=== PATIENT | female | born 1985 | race African-American/Black ===

== ENCOUNTER 2023-10-11 13:49 | Outpatient (AMB) | payer OTHER, SELFPAY ==
--- NOTE | 2023-10-11 14:01 | MHC.OFFVIS ---
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 The condition started after she had her in 2021. She started having significant pains in her shoulders knees, hands. She was evaluated by her PCP, her ESR was elevated, she was prescribed a prednisone taper with improvement. Since then she would have intermittent flare-ups of joint pain and swelling. She gets swelling of her fingers and her rings are tight. She has morning stiffness lasting at least 3 hours. She gets bilateral hand pain, wrist pain, hip pain, knee pain, ankle pain. Recently evaluated by PCP and prescribed prednisone taper with at least 70% improvement, however the higher doses were associated with stomach upset and diarrhea. She states that she gets intermittent rashes on the back of her scalp, those are usually worse in the sun and are associated with hair loss. She has been getting intermittent rashes the mouth. Uncomfortable but not painful. Patient had 11 pregnancies, 9 live births and 2 abortions. She is unaware of any family history of an autoimmune rheumatic disease. 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 Female Reproductive History Menstrual Total pregnancies: 11 Full term: 9 Ab induced: 2 Review of Systems Const Reports fatigue, Reports headache(s) and Reports weakness Eyes Reports blurry vision and Reports eye pain ENT Reports headache(s), Reports neck pain and Reports tinnitus GI Reports nausea Musc Reports back pain, Reports arthralgias, Reports joint swelling, Reports neck pain, Reports numbness, Reports radiating pain into limb, Reports stiffness and Reports tingling Skin/Breast Reports pruritus, Reports erythema and Reports rash Neuro Reports headache(s), Reports numbness, Reports tingling and Reports weakness Psych Reports abnormal sleep pattern, Reports anxiety and Reports depression Endo Reports fatigue Physical Exam Vital Signs: Last Vital Signs Temp 97.8 F 10/11/23 14:02 Pulse 68 10/11/23 14:02 Resp 17 10/11/23 14:02 BP 126/78 10/11/23 14:02 Pulse Ox 99 10/11/23 14:02 Oxygen Delivery Method Room Air 10/11/23 14:02 BMI result Body Mass Index 46.8 Const General: cooperative, healthy appearing and comfortable Nutritional Appearance: obese morbidly obese Orientation/consciousness: patient oriented x3 Limitations: no limitations HEENT Head: Yes normocephalic and Yes atraumatic Mouth: moist mucous membranes Resp Effort & Inspection: normal respiratory effort and able to speak in complete sentences Auscultation: clear to auscultation bilaterally Cardio Rate: regular rate Rhythm: regular rhythm Skin Other: Neuro General: patient oriented x3 Extrem Other: Bilateral wrist tenderness and pain with flexion and extension Bilateral diffuse MCP tenderness No PIP or DIP tenderness Bilateral elbow pain with flexion and extension Few fibromyalgia tender points Knee pain with flexion and extension bilaterally as well as trochanteric bursa area tenderness Bilateral ankle pain to palpation No MTP tenderness bilaterally Negative MTP squeeze test bilaterally Results Reviewed Results Reviewed: X-RAY KNEE 4+ VIEW Exam Date: 07/05/2023 1:41 PM Ordering Diagnosis: Right knee pain, unspecified chronicity ? HISTORY: Knee Pain ? TECHNIQUE: 4 views of the right knee ? COMPARISON: Right knee radiograph from 07/17/2022 ? FINDINGS: No acute fracture or dislocation is seen. There is no joint effusion present. The medial and lateral joint spaces appear normal. Soft tissues are unremarkable. ? IMPRESSION IMPRESSION: No acute fracture or dislocation of the right knee. Labs from [facility] 09/2023 ESR 83 DELICIA/RF negative Assessment & Plan Assessment & Plan (1) Polyarthralgia: Code(s): M25.50 - Pain in unspecified joint Plan: This is a 38-year-old female who presents for evaluation of recurrent episodes of diffuse joint pain and swelling, high inflammatory markers, symptoms responsive to prednisone. Clinical picture consistent with new onset inflammatory arthritis. Will order comprehensive serology to screen for underlying autoimmune rheumatic disease. Check x-rays of involved joints. Start prednisone taper for relief Follow-up in about 4 weeks Plan I spent 47 minutes reviewing patient's chart, evaluating patient, ordering diagnostic workup, counseling patient and documenting in the chart Orders: Orders DELICIA Reflex Titer and Pattern Today M32.9 - Systemic lupus erythematosus, unspecified Anti Extractable Nuclear Ag Today M32.9 - Systemic lupus erythematosus, unspecified C Reactive Protein Today M32.9 - Systemic lupus erythematosus, unspecified DNA Double Stranded-Crithidia Today M32.9 - Systemic lupus erythematosus, unspecified Erythrocyte Sedimentation Rate Today M32.9 - Systemic lupus erythematosus, unspecified Protein Creatinine Ratio, Ur Today M32.9 - Systemic lupus erythematosus, unspecified UA w Microscopic Today M32.9 - Systemic lupus erythematosus, unspecified Comprehensive Met. Panel Today M32.9 - Systemic lupus erythematosus, unspecified T Spot TB Today Z11.7 - Encounter for testing for latent tuberculosis infection Protein Electrophoresis, Serum Today M32.9 - Systemic lupus erythematosus, unspecified XR hand wrist LT Today M25.50 - Pain in unspecified joint XR hip RT min 2V Today M25.50 - Pain in unspecified joint Beta-2 Glycoprotein Antibody Today D68.61 - Antiphospholipid syndrome Anti DNA DS Antibody Today M32.9 - Systemic lupus erythematosus, unspecified Complement C3 Today M32.9 - Systemic lupus erythematosus, unspecified Complement C4 Today M32.9 - Systemic lupus erythematosus, unspecified Sjogren's Antibodies Today M32.9 - Systemic lupus erythematosus, unspecified Complete Blood Count Auto Diff Today M32.9 - Systemic lupus erythematosus, unspecified Hepatitis A,B,C Profile Today Z11.59 - Encounter for screening for other viral diseases Immunofixation Pnl, Serum Today M32.9 - Systemic lupus erythematosus, unspecified Angiotensin Converting Enzyme Today D86.9 - Sarcoidosis, unspecified Cyclic Citrullinated Peptide Today M25.50 - Pain in unspecified joint XR hand wrist RT Today M25.50 - Pain in unspecified joint XR knee LT 3V Today M25.50 - Pain in unspecified joint XR knee RT 3V Today M25.50 - Pain in unspecified joint XR knee standing BI Today M25.50 - Pain in unspecified joint XR hip LT min 2V Today M25.50 - Pain in unspecified joint Cardiolipin Antibodies Today D68.61 - Antiphospholipid syndrome Lupus Anticoagulant Panel Today D68.61 - Antiphospholipid syndrome Medications: New prednisone Take 4 tabs daily for 1 week, 3 tabs daily for 1 week, 2 tabs daily for 1 week, 1 tab daily for 1 week then stop 70 tabs 0RF Coding Level of Care Code New Pt Level 4 (55226) Diagnoses Polyarthralgia M25.50
[2023-10-11 14:02] VITALS: BP 126/78; PULSE 68; RESP 17; TEMP 36.6; O2SAT 99; BMI 46.8
== END 2023-10-11 14:48 | disposition home or self-care (01) ==
PROVIDERS: PCP Internal Medicine; Referring Provider Internal Medicine; Visit Provider Student in an Organized Health Care Education/Training Program
DX: M25.50 Pain in unspecified joint (principal)
CPT/HCPCS: 99204

== ENCOUNTER 2023-10-11 13:49 | Outpatient (REF) | payer OTHER, SELFPAY ==
--- NOTE | ~2023-10-11 | XR_ITS ---
EXAMINATION: XR HIP, RIGHT CLINICAL INFORMATION: Pain. COMPARISON: None available. TECHNIQUE: AP and frog-leg lateral views of the right hip. FINDINGS: No fracture. Alignment is anatomic. Hip joint space is maintained. Soft tissues are unremarkable. XR/XR hip LT min 2V IMPRESSION: Normal right hip. EXAMINATION: XR HIP, LEFT CLINICAL INFORMATION: Pain. COMPARISON: None available. TECHNIQUE: AP and frog-leg lateral views of the left hip. FINDINGS: No fracture. Alignment is anatomic. Hip joint space is maintained. Soft tissues are unremarkable. IMPRESSION: Normal left hip.
--- NOTE | ~2023-10-11 | XR_ITS ---
EXAMINATION: XR HIP, RIGHT CLINICAL INFORMATION: Pain. COMPARISON: None available. TECHNIQUE: AP and frog-leg lateral views of the right hip. FINDINGS: No fracture. Alignment is anatomic. Hip joint space is maintained. Soft tissues are unremarkable. XR/XR hip RT min 2V IMPRESSION: Normal right hip. EXAMINATION: XR HIP, LEFT CLINICAL INFORMATION: Pain. COMPARISON: None available. TECHNIQUE: AP and frog-leg lateral views of the left hip. FINDINGS: No fracture. Alignment is anatomic. Hip joint space is maintained. Soft tissues are unremarkable. IMPRESSION: Normal left hip.
--- NOTE | ~2023-10-11 | XR_ITS ---
EXAMINATION: XR KNEE, RIGHT CLINICAL INFORMATION: Pain. COMPARISON: None available. TECHNIQUE: Four views of the right knee. FINDINGS: No fracture or joint effusion. Alignment is anatomic. Joint spaces are maintained. No abnormal soft tissue calcification. XR/XR knee RT 4V IMPRESSION: Normal right knee. EXAMINATION: XR KNEE, LEFT CLINICAL INFORMATION: Pain. COMPARISON: None available. TECHNIQUE: Four views of the left knee. FINDINGS: No fracture or joint effusion. Alignment is anatomic. Joint spaces are maintained. No abnormal soft tissue calcification. IMPRESSION: Normal left knee.
--- NOTE | ~2023-10-11 | XR_ITS ---
EXAMINATION: XR HAND/WRIST, RIGHT XR HAND/WRIST, LEFT CLINICAL INFORMATION: Pain. COMPARISON: None TECHNIQUE: PA, lateral, and oblique views of the each hand and wrist, together with dedicated navicular views. FINDINGS: RIGHT HAND/WRIST: The bones and soft tissues are normal. No fracture. Alignment is anatomic. Joint spaces are maintained. No erosions or soft tissue calcifications. LEFT HAND/WRIST: The bones and soft tissues are normal. No fracture. Alignment is anatomic. Joint spaces are maintained. No erosions or soft tissue calcifications. XR/XR hand wrist LT IMPRESSION: Normal radiographs of the hands and wrists.
--- NOTE | ~2023-10-11 | XR_ITS ---
EXAMINATION: XR HAND/WRIST, RIGHT XR HAND/WRIST, LEFT CLINICAL INFORMATION: Pain. COMPARISON: None TECHNIQUE: PA, lateral, and oblique views of the each hand and wrist, together with dedicated navicular views. FINDINGS: RIGHT HAND/WRIST: The bones and soft tissues are normal. No fracture. Alignment is anatomic. Joint spaces are maintained. No erosions or soft tissue calcifications. LEFT HAND/WRIST: The bones and soft tissues are normal. No fracture. Alignment is anatomic. Joint spaces are maintained. No erosions or soft tissue calcifications. XR/XR hand wrist RT IMPRESSION: Normal radiographs of the hands and wrists.
--- NOTE | ~2023-10-11 | XR_ITS ---
EXAMINATION: XR KNEE, RIGHT CLINICAL INFORMATION: Pain. COMPARISON: None available. TECHNIQUE: Four views of the right knee. FINDINGS: No fracture or joint effusion. Alignment is anatomic. Joint spaces are maintained. No abnormal soft tissue calcification. XR/XR knee LT 4V IMPRESSION: Normal right knee. EXAMINATION: XR KNEE, LEFT CLINICAL INFORMATION: Pain. COMPARISON: None available. TECHNIQUE: Four views of the left knee. FINDINGS: No fracture or joint effusion. Alignment is anatomic. Joint spaces are maintained. No abnormal soft tissue calcification. IMPRESSION: Normal left knee.
[2023-10-11 15:19] LABS: MANUAL DIFF FLAG NO
[2023-10-11 15:41] LABS: Basophils Percent Auto 0.4 % (0-2); Eosinophils Absolute Auto 0.2 X10*3/uL (0.0-0.4); Eosinophils Percent Auto 2.4 % (0-4); Hematocrit 40.6 % (37.0-47.0); Hemoglobin 13.2 g/dl (12.0-16.0); Imm Gran Abs Auto 0.02 X10*3/uL (0.00-0.03); Imm Gran Pct Auto 0.2 % (0.0-0.4); Lymphocytes Absolute Auto 2.3 X10*3/uL (1.2-4.9); Lymphocytes Percent Auto 28.4 % (20-40); Mean Corpuscular HGB Conc 32.5 g/dl (31.0-35.0); Mean Corpuscular Hemoglobin 26.1 pg (27.0-33.0); Mean Corpuscular Volume 80.4 fL (80.0-98.0); Mean Platelet Volume 9.7 fL (9.4-12.3); Monocytes Absolute Auto 0.5 X10*3/uL (0.1-1.2); Monocytes Percent Auto 5.8 % (2-11); Neutrophils Absolute Auto 5.1 x10*3/uL (2.0-8.3); Neutrophils Percent Auto 62.8 % (45-73); Platelet Count 344 X10*3/uL (160-400); Red Blood Count 5.05 X10*6/uL (4.20-5.50); Red Cell Distribution Width 15.7 % (11.0-16.0); White Blood Count 8.1 X10*3/uL (4.8-10.8)
[2023-10-11 15:43] LABS: Appearance Urine Clear; Color Urine Yellow; Glucose Urine UA Negative (Negative); Leukocyte Esterase Urine Negative (Negative); Nitrite Urine Negative (Negative); UMIC TRIGGER UA YES; Urine Blood Large (3+) (Negative); Urine Ketones Negative (Negative); Urine Protein Negative (Neg-Trace)
[2023-10-11 15:45] LABS: Bacteria Urine None Seen (None Seen); Hyaline Casts Urine 0-2 /LPF (0-2); Squamous Epithelial Cell Urine 0-2 /HPF (0-2); WBC Urine 0-5 /HPF (0-5)
[2023-10-11 16:01] LABS: Creatinine Urine 63.16 mg/dL; Total Protein Urine Random < 7 mg/dL (<12)
[2023-10-11 16:10] LABS: Alanine Aminotransferase 17 U/L (0-31); Alkaline Phosphatase 98 U/L (39-117); Anion Gap 10 (12-20); Aspartate Amino Transferase 14 U/L (5-31); Bilirubin Total 0.2 mg/dL (0.0-1.0); Blood Urea Nitrogen 8 mg/dL (9-16); Calcium 9.1 mg/dL (8.4-10.2); Carbon Dioxide 24 mmol/L (22-29); Chloride 108 mmol/L (96-108); Estimated Glomerular Filt Rate > 60; Glucose Random 79 mg/dL (60-115); Potassium 3.8 mmol/L (3.3-5.1); Sodium 138 mmol/L (135-145); Total Protein 7.8 g/dL (6.5-8.0)
[2023-10-11 16:32] LABS: Erythrocyte Sedimentation Rate 30 MM/HR (0-20)
[2023-10-12 23:23] LABS: Complement C3 149 mg/dL (83-193)
[2023-10-13 21:54] LABS: TS Negative Control Passed; TS Panel A 1; TS Panel B 0; TS Positive Control Passed; TSpotTB Negative (Negative)
[2023-10-14 08:32] LABS: HBS Num1 35.44 mIU/mL (0-7.99); HBsAGNum1 0.29 S/CO (0.00-0.99); Hepatitis A Antibody IgM 0.19 Index (0-0.79); Hepatitis B Core Antibody Nonreactive (Nonreactive); Hepatitis B Surface Antigen Negative (Negative); ~HepC Num1 0.11 S/CO (0.00-0.79); ~Hepatitis A Antibody IgM Nonreactive (Nonreactive); ~Hepatitis B Surface Antibody REACTIVE (Nonreactive); ~Hepatitis C Antibody Nonreactive (Nonreactive)
[2023-10-14 14:29] LABS: Cyclic Citrullinated Peptide <16 UNITS
[2023-10-14 15:38] LABS: Anti Nuclear Antibody Screen NEGATIVE (NEGATIVE)
[2023-10-14 22:19] LABS: Prot Elec - Albumin 3.9 g/dL (3.8-4.8); Prot Elec - Alpha1 0.4 g/dL (0.2-0.3); Prot Elec - Alpha2 0.7 g/dL (0.5-0.9); Prot Elec - Beta 1 0.4 g/dL (0.4-0.6); Prot Elec - Beta 2 0.5 g/dL (0.2-0.5); Prot Elec - Gamma 1.4 g/dL (0.8-1.7); Prot Elec - Total Protein 7.2 g/dL (6.1-8.1)
[2023-10-14 22:38] LABS: Cardiolipin IgG Ab <2.0 GPL-U/mL; Cardiolipin IgM Ab <2.0 MPL-U/mL
[2023-10-15 08:29] LABS: Anti DNA DS Antibody <1 IU/mL; Antibody to SS-A Antigen <1.0 NEG AI (<1.0 NEG); Antibody to SS-B Antigen <1.0 NEG AI (<1.0 NEG); SM/Ribonucleoprotein Ab <1.0 NEG AI (<1.0 NEG); Smith Protein <1.0 NEG AI (<1.0 NEG)
[2023-10-15 11:48] LABS: IgA 222 mg/dL (47-310); IgG 1527 mg/dL (600-1640); IgM 136 mg/dL (50-300)
[2023-10-16 14:54] LABS: DNAds, Crithidia Antibody Negative (Negative)
[2023-10-17 09:13] LABS: Angiotensin Converting Enzyme 27.4 U/L (9-67)
[2023-10-17 13:43] LABS: Beta-2 Glycoprotein IgA <2.0 U/mL (<20.0); Beta-2 Glycoprotein IgG <2.0 U/mL (<20.0); Beta-2 Glycoprotein IgM <2.0 U/mL (<20.0)
[2023-10-17 22:22] LABS: PTT (LAC) Screen 39 sec (<=40)
== END 2023-10-11 13:50 | disposition home or self-care (01) ==
LOC: CF 13:49
PROVIDERS: PCP Internal Medicine; Referring Provider Internal Medicine; Visit Provider Student in an Organized Health Care Education/Training Program
DX: Z11.59 Encounter for screening for other viral diseases (principal); Z11.7 Encounter for testing for latent tuberculosis infection; M32.9 Systemic lupus erythematosus, unspecified; D68.61 Antiphospholipid syndrome; D86.9 Sarcoidosis, unspecified; M25.50 Pain in unspecified joint; Z72.89 Other problems related to lifestyle
CPT/HCPCS: 36415; 73110; 73130; 73502; 73564; 80053; 81001; 82164; 82570; 82784; 84156; 84165; 85025; 85597; 85598; 85613; 85652; 85730; 86038; 86140; 86146; 86147; 86160; 86200; 86225; 86235; 86255; 86334; 86481; 86704; 86706; 86709; 86803; 87340

== ENCOUNTER 2023-11-11 12:35 | Outpatient (AMB) | payer OTHER, SELFPAY ==
[2023-11-11 12:39] VITALS: BP 124/66; PULSE 75; O2SAT 98; BMI 46.7
--- NOTE | 2023-11-11 12:39 | A.OFFVIS_ITS ---
Vital Signs 11/11/23 12:39 Height 5 ft 4 in Weight 271 lb 13.279 oz BMI 46.7 BP 124/66 Blood Pressure Location Rt brachial Position Sitting Pulse 75 Pulse Source Pulse Oximeter Pulse Oximetry (%) 98 Oxygen Delivery Method Room Air Intake Visit Reasons: Arthralgia Intake Note: Patient last seen 10/11/23 presents today for follow up and test results. Finished prednisone, reports no improvement in pain Fireworks Maker Required: No Accompanied by: Self / Same As Patient Allergies codeine Allergy (Unknown, Verified 11/11/23 12:42) Unknown fruit Allergy (Unknown, Uncoded 11/11/23 12:42) Unknown Medication List - Last Reconciled 11/11/23 by Bernard Davies MD bupropion HCl SR mg PO dicyclomine 10 mg PO TID hydroxychloroquine 200 mg PO BID topiramate mg PO HPI Comments Details: Patient returns for follow-up after completion of her diagnostic workup. States that prednisone was moderately helpful especially at 20 mg. 5 mg isn't so helpful. She just ran out of prednisone. She continues to have diffuse joint pain especially hands, wrists, fingers, elbows, knees, shoulders Initial history: This is a 38-year-old female who presents for evaluation of multiple joint pain and high ESR. The condition started after she had her C- section in 2021. She started having significant pains in her shoulders knees, hands. She was evaluated by her PCP, her ESR was elevated, she was prescribed a prednisone taper with improvement. Since then she would have intermittent flare-ups of joint pain and swelling. She gets swelling of her fingers and her rings are tight. She has morning stiffness lasting at least 3 hours. She gets bilateral hand pain, wrist pain, hip pain, knee pain, ankle pain. Recently evaluated by PCP and prescribed prednisone taper with at least 70% improvement, however the higher doses were associated with stomach upset and diarrhea. She states that she gets intermittent rashes on the back of her scalp, those are usually worse in the sun and are associated with hair loss. She has been getting intermittent rashes the mouth. Uncomfortable but not painful. Patient had 11 pregnancies, 9 live births and 2 abortions. She is unaware of any family history of an autoimmune rheumatic disease. 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 Female Reproductive History Menstrual Total pregnancies: 11 Full term: 9 Ab induced: 2 Review of Systems Musc Reports back pain, Reports arthralgias, Reports joint swelling and Reports stiffness Skin/Breast Reports pruritus, Reports erythema and Reports rash Physical Exam Vital Signs: Last Vital Signs Pulse 75 11/11/23 12:39 BP 124/66 11/11/23 12:39 Pulse Ox 98 11/11/23 12:39 Oxygen Delivery Method Room Air 11/11/23 12:39 BMI result Body Mass Index 46.7 Const General: cooperative, healthy appearing and comfortable Nutritional Appearance: obese morbidly obese Orientation/consciousness: patient oriented x3 Limitations: no limitations HEENT Head: Yes normocephalic and Yes atraumatic Mouth: moist mucous membranes Resp Effort & Inspection: normal respiratory effort and able to speak in complete sentences Auscultation: clear to auscultation bilaterally Cardio Rate: regular rate Rhythm: regular rhythm Neuro General: patient oriented x3 Extrem Other: Bilateral wrist tenderness and pain with flexion and extension Bilateral diffuse MCP tenderness No PIP or DIP tenderness Bilateral elbow pain with flexion and extension Few fibromyalgia tender points Knee pain with flexion and extension bilaterally as well as trochanteric bursa area tenderness Bilateral ankle pain to palpation No MTP tenderness bilaterally Negative MTP squeeze test bilaterally Results Reviewed Results Reviewed: X-RAY KNEE 4+ VIEW Exam Date: 07/05/2023 1:41 PM Ordering Diagnosis: Right knee pain, unspecified chronicity ? HISTORY: Knee Pain ? TECHNIQUE: 4 views of the right knee ? COMPARISON: Right knee radiograph from 07/17/2022 ? FINDINGS: No acute fracture or dislocation is seen. There is no joint effusion present. The medial and lateral joint spaces appear normal. Soft tissues are unremarkable. ? IMPRESSION IMPRESSION: No acute fracture or dislocation of the right knee. Labs from [facility] 09/2023 ESR 83 DELICIA/RF negative Assessment & Plan Assessment & Plan (1) Polyarthralgia: Code(s): M25.50 - Pain in unspecified joint Category: Medical Plan: This is a 38-year-old female who presents for evaluation of recurrent episodes of diffuse joint pain and swelling, high inflammatory markers, symptoms responsive to prednisone. Clinical picture consistent with new onset inflamma tory arthritis. Comprehensive serology is unremarkable. Clinical picture is consistent with onset seronegative arthritis. Seronegative rheumatoid arthritis versus psoriatic arthritis versus UCTD. Needs DMARDs. Discussed risks and benefits of methotrexate. Patient agreed to proceed. Start methotrexate 15 mg weekly for 2 weeks then 20 mg once weekly. Start folic acid 1 mg daily Continue hydroxychloroquine 200 mg Twice daily Continue prednisone 5 mg daily for 2 more weeks Labs before next visit in 2 months (2) Rash and nonspecific skin eruption: Code(s): R21 - Rash and other nonspecific skin eruption Category: Medical Plan: Follow-up with dermatology. Consider skin biopsy. If this is psoriasis, her diagnosis could change into psoriatic arthritis (3) Long-term use of hydroxychloroquine: Code(s): Z79.899 - Other watermaster (current) drug therapy Category: Medical Plan: States that she follows up regularly with Ophthalmology every 6 months for her history of pseudotumor cerebri and father's history of glaucoma. Has a follow- up appointment in January (4) senior living methotrexate user: Code(s): Z79.631 - senior living (current) use of antimetabolite agent Category: Medical Plan: Monitor safety labs. Patient does not consume alcohol. Discussed teratogenic effects of methotrexate. Patient has 9 children, not planning on having any more children. Uses condoms regularly. She is planning to have her tubes tied soon Plan I spent 47 minutes reviewing patient's chart, evaluating patient, ordering diagnostic workup, counseling patient and documenting in the chart Orders: Orders Complete Blood Count Auto Diff 2 Months Z79.631 - assistant terminal manager (current) use of antimetabolite agent Comprehensive Met. Panel 2 Months Z79.631 - senior living (current) use of antimetabolite agent C Reactive Protein 2 Months Z79.631 - senior living (current) use of antimetabolite agent Erythrocyte Sedimentation Rate 2 Months Z79.631 - assistant terminal manager (current) use of antimetabolite agent HLA B27 2 Months M45.9 - Ankylosing spondylitis of unspecified sites in spine Medications: New folic acid 1 mg PO DAILY 90 tabs 0RF methotrexate sodium Take 6 tabs once weekly for 2 weeks, then 8 tabs once weekly 64 tabs 0RF Changed From prednisone Take 4 tabs daily for 1 week, 3 tabs daily for 1 week, 2 tabs daily for 1 week, 1 tab daily for 1 week then stop 70 tabs 0RF To prednisone 5 mg PO DAILY 14 tabs 0RF Coding Level of Care Code Est Pt Level 5 (47015) Complex EM visit Add On G2211 Diagnoses Polyarthralgia M25.50 Rash and nonspecific skin eruption R21 Long-term use of hydroxychloroquine Z79.899 assistant terminal manager methotrexate user Z79.631
== END 2023-11-11 13:09 | disposition home or self-care (01) ==
LOC: HO.RHE 12:35
PROVIDERS: PCP Internal Medicine; Visit Provider Student in an Organized Health Care Education/Training Program
DX: M25.50 Pain in unspecified joint (principal); R21 Rash and other nonspecific skin eruption; Z79.899 Other long term (current) drug therapy; Z79.631 Long term (current) use of antimetabolite agent
CPT/HCPCS: 99215; G2211

== ENCOUNTER → 2023-11-11 12:35 | Outpatient (BNVA) | payer OTHER, SELFPAY | PROVIDERS: PCP Internal Medicine; Visit Provider Student in an Organized Health Care Education/Training Program ==

== ENCOUNTER 2024-01-10 07:43 | Outpatient (AMB) | payer OTHER, SELFPAY ==
--- NOTE | 2024-01-10 07:44 | MHC.OFFVIS ---
Vital Signs 01/10/24 07:51 Height 5 ft 4 in Weight 273 lb 5.971 oz BMI 46.9 BP 124/60 Blood Pressure Location Rt brachial Position Sitting Pulse 76 Pulse Source Pulse Oximeter Pulse Oximetry (%) 98 Oxygen Delivery Method Room Air Intake Visit Reasons: RA/CM Intake Note: Pt seen today for RA follow up. 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 She took methotrexate for approximately 1 month and could not tolerate it due to significant fatigue dizziness and diarrhea. She remains on hydroxychloroquine 20 mg Twice daily. She feels much worse overall. Continues to have pain and swelling in her hands, especially her knuckles and PIP is, toes, significant back and hip stiffness that lasts 6 hours after waking up Initial history: This is a 38-year-old female who presents for evaluation of multiple joint pain and high ESR. The condition started after she had her in 2021. She started having significant pains in her shoulders knees, hands. She was evaluated by her PCP, her ESR was elevated, she was prescribed a prednisone taper with improvement. Since then she would have intermittent flare-ups of joint pain and swelling. She gets swelling of her fingers and her rings are tight. She has morning stiffness lasting at least 3 hours. She gets bilateral hand pain, wrist pain, hip pain, knee pain, ankle pain. Recently evaluated by PCP and prescribed prednisone taper with at least 70% improvement, however the higher doses were associated with stomach upset and diarrhea. She states that she gets intermittent rashes on the back of her scalp, those are usually worse in the sun and are associated with hair loss. She has been getting intermittent rashes the mouth. Uncomfortable but not painful. Patient had 11 pregnancies, 9 live births and 2 abortions. She is unaware of any family history of an autoimmune rheumatic disease. 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 Female Reproductive History Menstrual Total pregnancies: 11 Full term: 9 Ab induced: 2 Review of Systems Musc Reports back pain, Reports arthralgias, Reports joint swelling and Reports stiffness Skin/Breast Reports pruritus, Reports erythema and Reports rash Physical Exam Vital Signs: Last Vital Signs Pulse 76 01/10/24 07:51 BP 124/60 01/10/24 07:51 Pulse Ox 98 01/10/24 07:51 Oxygen Delivery Method Room Air 01/10/24 07:51 BMI result Body Mass Index 46.9 Const General: cooperative, healthy appearing and comfortable Nutritional Appearance: obese morbidly obese Orientation/consciousness: patient oriented x3 Limitations: no limitations HEENT Head: Yes normocephalic and Yes atraumatic Mouth: moist mucous membranes Resp Effort & Inspection: normal respiratory effort and able to speak in complete sentences Auscultation: clear to auscultation bilaterally Cardio Rate: regular rate Rhythm: regular rhythm Skin General skin exam: no rashes or lesions noted Neuro General: patient oriented x3 Extrem Other: Bilateral wrist tenderness and pain with flexion and extension Bilateral diffuse MCP tenderness Diffuse PIP tenderness Right 3rd finger swelling Bilateral elbow pain with flexion and extension Few fibromyalgia tender points Knee pain with flexion and extension bilaterally as well as trochanteric bursa area tenderness Right 2nd toe swelling and tenderness Left 2nd toe swelling and tenderness Bilateral lower lumbar paraspinal and bilateral buttock tenderness Results Reviewed Results Reviewed: X-RAY KNEE 4+ VIEW Exam Date: 07/05/2023 1:41 PM Ordering Diagnosis: Right knee pain, unspecified chronicity ? HISTORY: Knee Pain ? TECHNIQUE: 4 views of the right knee ? COMPARISON: Right knee radiograph from 07/17/2022 ? FINDINGS: No acute fracture or dislocation is seen. There is no joint effusion present. The medial and lateral joint spaces appear normal. Soft tissues are unremarkable. ? IMPRESSION IMPRESSION: No acute fracture or dislocation of the right knee. Labs from [facility] 09/2023 ESR 83 DELICIA/RF negative Assessment & Plan Assessment & Plan (1) Psoriatic arthritis: Comment: dx 10/2023 HCQ 10/2023-DC 12/2023 MTX 10/2023 DC 11/2023 diarrhea, dizziness, GI upset Code(s): L40.50 - Arthropathic psoriasis, unspecified Category: Medical Plan: This is a 38-year-old female who presents for evaluation of recurrent episodes of diffuse joint pain and swelling, high inflammatory markers, symptoms responsive to prednisone.? Clinical picture consistent with new onset inflammatory arthritis.? Comprehensive serology is unremarkable. She has history of psoriasis. Patient took methotrexate for 4-5 weeks, could not be tolerated due to GI upset, diarrhea and dizziness. She is also on hydroxychloroquine 200 mg Twice daily for the last 11 weeks without improvement. DC hydroxychloroquine. Can worsen psoriasis. We will need to change DMARDs. Discussed risks and benefits of TNF inhibitors. Patient agreed to proceed. Will start prior authorization for Humira Labs before next visit in 3 months (2) Rash and nonspecific skin eruption: Code(s): R21 - Rash and other nonspecific skin eruption Category: Medical Plan: States that she was diagnosed with psoriasis in the past. Did not get a skin biopsy. She has a follow-up appointment with Dermatology in March Plan I spent 37 minutes reviewing patient's chart, evaluating patient, ordering diagnostic workup, counseling patient and documenting in the chart Orders: Orders C Reactive Protein 3 Months L40.50 - Arthropathic psoriasis, unspecified Erythrocyte Sedimentation Rate 3 Months L40.50 - Arthropathic psoriasis, unspecified HLA B27 3 Months M45.9 - Ankylosing spondylitis of unspecified sites in spine Complete Blood Count Auto Diff 3 Months L40.50 - Arthropathic psoriasis, unspecified Comprehensive Met. Panel 3 Months L40.50 - Arthropathic psoriasis, unspecified Medications: Discontinued hydroxychloroquine Discontinued Reason: Doctor's Order 200 mg PO BID 60 tabs 2RF folic acid Discontinued Reason: Doctor's Order 1 mg PO DAILY 90 tabs 0RF Coding Level of Care Code Est Pt Level 4 (28662) Diagnoses Psoriatic arthritis L40.50 Rash and nonspecific skin eruption R21
[2024-01-10 07:51] VITALS: BP 124/60; PULSE 76; O2SAT 98; BMI 46.9
== END 2024-01-10 08:30 | disposition home or self-care (01) ==
LOC: HO.RHE 07:43
PROVIDERS: PCP Internal Medicine; Visit Provider Student in an Organized Health Care Education/Training Program
DX: L40.50 Arthropathic psoriasis, unspecified (principal); R21 Rash and other nonspecific skin eruption
CPT/HCPCS: 99214

== ENCOUNTER → 2024-01-10 07:43 | Outpatient (BNVA) | payer OTHER, SELFPAY | PROVIDERS: PCP Internal Medicine; Visit Provider Student in an Organized Health Care Education/Training Program ==